=== PATIENT | female | born 1950 | race Caucasian/White ===

== ENCOUNTER 2018-01-11 13:00 | Inpatient (IN) | payer OTHER ==
[~2018-01-11] VITALS: Ht 157.5 cm; Wt 82.3 kg
[2018-01-11 13:04] VITALS: Ht 157.5 cm; Wt 82.3 kg
[2018-01-11 13:50] LABS: microscopic required? NO
[2018-01-11 13:56] LABS: RED CELL DISTRIBUTION WIDTH 13.7 % (11.5-14.5)
[2018-01-11 14:09] LABS: UA SPECIFIC GRAVITY <=1.005 (1.005-1.035); urine erythrocyte NEGATIVE (NEGATIVE)
[2018-01-11 14:26] LABS: CALCIUM 9.8 mg/dL (8.5-10.1); CARBON DIOXIDE 27.5 mmol/L (21-32); CHLORIDE SERUM 94 mmol/L (98-107); CREATININE SERUM 0.8 mg/dL (0.6-1.0); GFR1 > 60 mL/min; GLUCOSE SERUM 101 mg/dL (74-106); POTASSIUM SERUM 3.7 mmol/L (3.5-5.1); SODIUM SERUM 131 mmol/L (136-145)
[2018-01-11 14:30] LABS: ALKALINE PHOSPHATASE 125 U/L (46-116); ALT/SGPT 17 U/L (14-59); AST/SGOT 35 U/L (15-37); BILIRUBIN TOTAL 0.5 mg/dL (0.20-1.00); LIPASE 137 IU/L (73-393); MONOCYTE 1 % (0-7); SEGMENTED NEUTROPHILS 75 % (37-75); TOTAL PROTEIN, SERUM 8.2 g/dL (6.4-8.2)
[2018-01-11 14:31] LABS: BAND NEUTROPHIL 12 % (0-10); BASOPHIL 0 % (0-2); METAMYELOCTE 1 % (0-2); MYELOCYTE 1 % (0-2); rbc morphology (normal/abnorm) NORMAL (NORMAL)
[2018-01-11 14:32] LABS: PLATELET MORPHOLOGY PLATELETS INCREASED
[2018-01-11 14:33] LABS: ALBUMIN 2.7 g/dL (3.4-5.0)
[2018-01-11 14:37] LABS: PLATELET COUNT 522 x10^3mcL (130-400)
[2018-01-11] MEDS ORDERED: CLARITHROMYCIN500 M1 PO (18:12)
[2018-01-11] MEDS ORDERED: AMOXICILLIN500 M1 PO (18:13)
[2018-01-11] MEDS ORDERED: OMEPRAZOLE40 M1 PO (18:14)
[2018-01-11 19:35] VITALS: BP 142/84
[2018-01-11 20:09] VITALS: BP 122/75
[2018-01-12] VITALS (10 sets, daily range): BP systolic 106–128; BP diastolic 70–80
[2018-01-12 06:57] LABS: BASOPHIL % 0.2 % (0-2); RED CELL DISTRIBUTION WIDTH 13.8 % (11.5-14.5)
[2018-01-12 07:09] LABS: PLATELET COUNT 447 x10^3mcL (130-400)
[2018-01-12 07:20] LABS: ALKALINE PHOSPHATASE 107 U/L (46-116); ALT/SGPT 16 U/L (14-59); AST/SGOT 34 U/L (15-37); BILIRUBIN TOTAL 0.6 mg/dL (0.20-1.00); CALCIUM 9.8 mg/dL (8.5-10.1); CARBON DIOXIDE 27.3 mmol/L (21-32); CHLORIDE SERUM 99 mmol/L (98-107); CREATININE SERUM 0.8 mg/dL (0.6-1.0); GFR1 > 60 mL/min; GLUCOSE SERUM 108 mg/dL (74-106); POTASSIUM SERUM 3.8 mmol/L (3.5-5.1); SODIUM SERUM 134 mmol/L (136-145); TOTAL PROTEIN, SERUM 6.9 g/dL (6.4-8.2)
[2018-01-12 07:23] LABS: ALBUMIN 2.2 g/dL (3.4-5.0)
[2018-01-13 06:22] VITALS: BP 129/90
[2018-01-13 17:00] VITALS: BP 143/87
[2018-01-13 21:10] VITALS: BP 126/78
[2018-01-14 05:03] VITALS: BP 106/69
[2018-01-14 06:01] LABS: ALKALINE PHOSPHATASE 96 U/L (46-116); AST/SGOT 31 U/L (15-37); CALCIUM 9.1 mg/dL (8.5-10.1); CARBON DIOXIDE 20.3 mmol/L (21-32); CHLORIDE SERUM 100 mmol/L (98-107); CREATININE SERUM 0.6 mg/dL (0.6-1.0); GFR1 > 60 mL/min; GLUCOSE SERUM 117 mg/dL (74-106); POTASSIUM SERUM 4.3 mmol/L (3.5-5.1); SODIUM SERUM 136 mmol/L (136-145)
[2018-01-14 06:07] LABS: ALBUMIN 2.2 g/dL (3.4-5.0); TOTAL PROTEIN, SERUM 6.1 g/dL (6.4-8.2)
[2018-01-14 06:18] LABS: ALT/SGPT 13 U/L (14-59)
[2018-01-14 06:40] LABS: BASOPHIL % 0.1 % (0-2); PLATELET COUNT 356 x10^3mcL (130-400); RED CELL DISTRIBUTION WIDTH 14.4 % (11.5-14.5)
[2018-01-14 09:05] VITALS: BP 122/76
[2018-01-14 17:03] VITALS: BP 136/87
[2018-01-14 21:33] VITALS: BP 137/87
[2018-01-15 05:11] VITALS: BP 118/79
[2018-01-15 06:44] LABS: BASOPHIL % 0.7 % (0-2); PLATELET COUNT 385 x10^3mcL (130-400); RED CELL DISTRIBUTION WIDTH 13.1 % (11.5-14.5)
[2018-01-15 07:57] LABS: ALBUMIN 2.1 g/dL (3.4-5.0); ALKALINE PHOSPHATASE 91 U/L (46-116); AST/SGOT 31 U/L (15-37); BILIRUBIN TOTAL 0.35 mg/dL (0.20-1.00); CALCIUM 9.2 mg/dL (8.5-10.1); CHLORIDE SERUM 100 mmol/L (98-107); CREATININE SERUM 0.6 mg/dL (0.6-1.0); GFR1 > 60 mL/min; GLUCOSE SERUM 126 mg/dL (74-106); POTASSIUM SERUM 4.3 mmol/L (3.5-5.1); SODIUM SERUM 136 mmol/L (136-145); TOTAL PROTEIN, SERUM 5.9 g/dL (6.4-8.2)
[2018-01-15 08:06] LABS: ALT/SGPT 12 U/L (14-59)
[2018-01-15 09:07] VITALS: BP 143/88
[2018-01-15 16:54] VITALS: BP 145/80
[2018-01-15 20:48] VITALS: BP 145/88
[2018-01-16 05:24] VITALS: BP 140/84
[2018-01-16 07:07] LABS: ALKALINE PHOSPHATASE 88 U/L (46-116); ALT/SGPT 12 U/L (14-59); AST/SGOT 23 U/L (15-37); BILIRUBIN TOTAL 0.4 mg/dL (0.20-1.00); CALCIUM 9.5 mg/dL (8.5-10.1); CARBON DIOXIDE 27.1 mmol/L (21-32); CHLORIDE SERUM 99 mmol/L (98-107); CREATININE SERUM 0.6 mg/dL (0.6-1.0); GFR1 > 60 mL/min; GLUCOSE SERUM 113 mg/dL (74-106); POTASSIUM SERUM 3.8 mmol/L (3.5-5.1); SODIUM SERUM 131 mmol/L (136-145); TOTAL PROTEIN, SERUM 6.5 g/dL (6.4-8.2)
[2018-01-16 07:24] LABS: BASOPHIL % 0.1 % (0-2); PLATELET COUNT 352 x10^3mcL (130-400); RED CELL DISTRIBUTION WIDTH 14.5 % (11.5-14.5)
[2018-01-16 08:55] VITALS: BP 121/89
[2018-01-16 13:19] LABS: CALCITONIN < 2.0 pg/mL (0.0-5.0)
[2018-01-16 17:32] VITALS: BP 121/89
[2018-01-16 17:33] VITALS: BP 143/84
== END 2018-01-16 18:25 | disposition home health service (06) | DRG 443 ==
LOC: ED 13:00 → MU 17:30
PROVIDERS: Emergency Medicine; Internal Medicine Pulmonary Disease
PROC: 0F903ZZ Drainage of Liver, Percutaneous Approach (ICD-10-PCS; principal; 2018-01-12)
DX: K75.0 Abscess of liver (principal); I10 Essential (primary) hypertension; K80.20 Calculus of gallbladder without cholecystitis without obstruction; D72.829 Elevated white blood cell count, unspecified; K29.70 Gastritis, unspecified, without bleeding; B96.81 Helicobacter pylori [H. pylori] as the cause of diseases classified elsewhere
CPT/HCPCS: 82308; C9113; J0696; J2001; J2270; J2543; J2550; J3490; J7030; Q0092; Q0162; Q9967

== ENCOUNTER 2018-02-16 19:26 | Emergency (ER) | payer OTHER ==
[~2018-02-16] VITALS: Ht 152.4 cm; Wt 77.1 kg
[~2018-02-16 19:26] MED LIST: AMOXICILLIN500 M1 PO; CLARITHROMYCIN500 M1 PO; OMEPRAZOLE40 M1 PO
[2018-02-16 19:29] VITALS: Ht 152.4 cm; Wt 77.1 kg
[2018-02-16 22:08] VITALS: BP 116/80
== END 2018-02-16 22:08 | disposition home or self-care (01) ==
LOC: ED 19:26
DX: G89.29 Other chronic pain (principal); R10.10 Upper abdominal pain, unspecified; R11.2 Nausea with vomiting, unspecified; I10 Essential (primary) hypertension; Z85.09 Personal history of malignant neoplasm of other digestive organs
CPT/HCPCS: J2405; J3490; J7030